=== PATIENT | male | born 1955 | race Caucasian/White ===

== ENCOUNTER 2023-07-10 09:00 | Observation (INO) ==
[2023-07-10 07:31] LABS: Rapid COVID-19 Molecular Undetected (Undetected)
[2023-07-10] MEDS: Scopolamine 1 mg/72hr PATCH TRANSDERM ONE (08:07)
[~2023-07-10 09:00] MED LIST: Dexamethasone IV 4 MG/ML VIAL 1 ml VIAL ONE; Lidocaine 2% PF 5 ML VIAL ONE; Metoclopramide 5 MG/ML VIAL (10 mg) IV PRN; Midazolam 2 mg/2 ml VIAL 1 mg/ml 2 ml VIAL (2 mg) ONE; NS 0.45% 1000 ml BAG 1,000 ML IV SCH; Naloxone 0.4 mg VIAL 0.4 mg/ml 1 ml VIAL IV PRN; Ondansetron 4 mg VIAL 2 MG/ML 2 ml VIAL IV PRN; Propofol 10 mg/ml 100 ML BTL 1,000 MG/100 ML BTL ONE; ROPIVACAINE 5 MG/ML 30 ML BTL (0.5%) ONE; Scopolamine 1 mg/72hr PATCH ONE; Tranexamic Acid 1 GM/100ML BAG 2,000 MG/200 ML BAG IV ONE; ceFAZolin 2 GM in NS PREMIX 2 GM/100 ML BAG IVPB ONE; fentaNYL 100 mcg/2 ml 50 MCG/ML VIAL IV PRN
[2023-07-10] MEDS ORDERED: Ondansetron 4 mg VIAL 2 MG/ML 2 ml VIAL ONE (09:50)
[2023-07-10] MEDS ORDERED: Dexamethasone IV 4 MG/ML VIAL 1 ml VIAL ONE (09:50)
[2023-07-10] MEDS ORDERED: Glycopyrrolate IV 0.2 MG/ML 1 ML VIAL ONE (10:21)
[2023-07-10] MEDS ORDERED: Ondansetron 4 mg VIAL 2 MG/ML 2 ml VIAL IV PRN (12:25)
[2023-07-10] MEDS ORDERED: Ondansetron ODT 4 mg TAB 4 MG TAB PO PRN (12:25)
[2023-07-10] MEDS ORDERED: Calcium Carb (TUMS) 500 mg CHEW TAB PO PRN (12:25)
[2023-07-10] MEDS ORDERED: Magnesium Hydroxide LIQ 30 ML UDC PO PRN (12:25)
[2023-07-10] MEDS ORDERED: Lactulose 30 ml UDC PO PRN (12:25)
[2023-07-10] MEDS ORDERED: Morphine 2 MG/ML SYRINGE IV PRN (12:25)
[2023-07-10] MEDS: Lactated Ringers 1000 ml BAG 1,000 ML IV SCH ×2 (14:11→14:36)
[2023-07-10] MEDS: Buffered Lidocaine 1% SYRIN 1 ml INTRADERM ONE (14:12)
[2023-07-10] MEDS: Acetaminophen IV 1 GM/100ML 1,000 MG/100 ML BAG IV ONE (14:12)
[2023-07-10] MEDS: ceFAZolin 2 GM in NS PREMIX 2 GM/100 ML BAG IVPB SCH (17:38)
[2023-07-10] MEDS: Magnesium Hydroxide LIQ 30 ML UDC PO SCH (20:21)
[2023-07-11] MEDS: Benzocaine/Menthol LOZ PO PRN (02:49)
[2023-07-11 06:08] LABS: Hematocrit 34.2 % (38-53); Mean Platelet Volume 7.9 fL (7.5-11.2); Platelet Count 259 10^3/uL (150-450)
[2023-07-11] MEDS: Vitamin THERAPEUTIC TAB PO SCH (08:41)
[2023-07-11 09:38] VITALS: BP 142/77
== END 2023-07-11 13:00 | disposition home or self-care (01) ==
LOC: INTOOBSV 12:15 → AA 12:15 → SSU 12:25
PROVIDERS: ADMIT Orthopaedic Surgery Adult Reconstructive Orthopaedic Surgery; ATTEND Orthopaedic Surgery Adult Reconstructive Orthopaedic Surgery